=== PATIENT | male | born 1970 | race African-American/Black ===

== ENCOUNTER 2017-01-31 08:07 | Emergency (ER) | payer OTHER ==
[~2017-01-31] VITALS: Ht 172.7 cm; Wt 80.0 kg
[~2017-01-31 08:07] MED LIST: SERT100T PO; ZOLP10TA2 PO
[2017-01-31] MEDS ORDERED: ACETAMINOPHEN 500MG TABLET PO ONE (09:15)
[2017-01-31 11:35] VITALS: BP 136/74
== END 2017-01-31 12:13 | disposition home or self-care (01) ==
LOC: ER 08:09
DX: M25.532 Pain in left wrist (principal); F32.9 Major depressive disorder, single episode, unspecified
CPT/HCPCS: 29125; 73110; 93005; 99284